=== PATIENT | male | born 1985 | race Caucasian/White ===

== ENCOUNTER 2019-04-20 19:30 | Emergency (ER) | payer MEDICAID ==
[~2019-04-20] VITALS: Ht 175.3 cm; Wt 90.3 kg
[2019-04-20 19:37] VITALS: BP_SYST 187
--- NOTE | 2019-04-20 19:45 | NUR ---
Placed in room 2. Placed on gambling monitor, blood pressure machine and pulse oximeter. To gown for exam. Side rails up.
--- NOTE | 2019-04-20 19:50 | NUR ---
Pt C/O of upper left abdominal pain and hypertension since earlier this evening. Pt reports poor appetite and increased abdominal after having 1/3 of a mixed drink. Pt denies any CP, SOB, headache, blurred vision, N/V, GI/ problems or any other symptoms at this time. Blood Pressure is currently 177/122, HR 61. Will continue to monitor.
--- NOTE | 2019-04-20 20:04 | NUR ---
# 20 gauge angiocath placed to LT AC. Use of asceptic technique. Opsite placed over site. Blood return noted. Blood for lab drawn from site. Flushed with 10 cc of normal saline. No evidence of infiltration noted. Patient tolerated well.
--- NOTE | 2019-04-20 20:06 | NUR ---
ER Dr. Swift at bedside examining patient.
[2019-04-20] MEDS ORDERED: ONDANSETRON HCL 4 MG/2 ML VIAL IVP ONE (20:30)
[2019-04-20] MEDS ORDERED: MORPHINE 4 MG/ML INJ. SYRINGE IVP ONE ×2 (20:30→21:30)
[2019-04-20 20:44] LABS: CALCIUM 8.2 mg/dL (8.4-11.0); CREATININE 0.95 mg/dL (0.55-1.30); POTASSIUM 3.7 mmol/L (3.5-5.1)
[2019-04-20 20:46] LABS: PROTHROMBIN TIME 9.9 SECS (9.5-12.5)
[2019-04-20 20:52] LABS: ALBUMIN 3.6 g/dL (3.4-4.8); BASOPHILS % (AUTO) 0.5 % (0.0-2.0); EOSINOPHILS # (AUTO) 0.2 K/uL (0.0-0.4); EOSINOPHILS % (AUTO) 3.2 % (0.0-4.0); HEMATOCRIT 40.5 % (36-54); HEMOGLOBIN 14.6 g/dL (14.0-18.0); LYMPHOCYTES # (AUTO) 1.4 K/uL (1.0-5.5); LYMPHOCYTES % (AUTO) 19.1 % (20.5-51.5); MEAN CORPUSCULAR HEMOGLOBIN 30 pg (27-31); MEAN CORPUSCULAR HGB CONC 36 % (32-36); MEAN CORPUSCULAR VOLUME 85 fL (79.0-98.0); MONOCYTES # (AUTO) 0.6 K/uL (0.0-1.0); MONOCYTES % (AUTO) 8.9 % (1.7-9.3); NEUTROPHILS # (AUTO) 4.9 K/uL (1.8-7.7); NEUTROPHILS % (AUTO) 68.3 % (40.0-70.0); PLATELET COUNT (AUTO) 165 K/uL (130-430); RED BLOOD CELL COUNT(AUTO) 4.79 MIL/uL (4.2-6.2); RED CELL DISTRIBUTION WIDTH 13.4 % (9.0-15.0); TOTAL BILIRUBIN 0.2 mg/dL (0.0-1.0); WHITE BLOOD COUNT (AUTO) 7.2 K/uL (4.8-10.8)
[2019-04-20 20:58] LABS: BILIRUBIN,URINE NEGATIVE (NEGATIVE); BLOOD, URINE 2+ (NEGATIVE); CLARITY/URINE CLEAR (CLEAR); COLOR,URINE YELLOW (YELLOW); GLUCOSE,URINE NEGATIVE (NEGATIVE); KETONES,URINE NEGATIVE (NEGATIVE); LEUKOCYTE ESTERASE ,URINE NEGATIVE (NEGATIVE); NITRITE, URINE NEGATIVE (NEGATIVE); PH,URINE 6.5 (5.0-8.0); PROTEIN URINE NEGATIVE (NEGATIVE); UROBILINOGEN,URINE 0.2 (0.2-1.0)
[2019-04-20 21:10] LABS: BACTERIA,URINE FEW /HPF (None Seen); MUCUS,URINE None Seen /LPF (None Seen); WBC,URINE 0-3 /HPF (0-3)
[2019-04-20] MEDS ORDERED: IOHEXOL 350 mgI/mL, 150 ML INFUS..BTL IV ONE (21:16)
--- NOTE | 2019-04-20 21:20 | NUR ---
Pt states pain is starting to return and radiating to the lower left quadrant. Dr. Swift has been notified, will continue to monitor.
--- NOTE | 2019-04-20 21:30 | NUR ---
Pt has been given Morphine IVP prior to CT-A per pt request. Tolerated medication well, will continue to monitor
--- NOTE | 2019-04-20 21:35 | NUR ---
Patient transported to radiology via gurney, accompanied by rad staff.
--- NOTE | 2019-04-20 21:47 | NUR ---
Patient returned in stable condition
--- NOTE | 2019-04-20 23:05 | NUR ---
Ultrasound at bedside.
[2019-04-21] MEDS ORDERED: hydrALAZINE HCL 20 MG/ML VIAL IVP ONE ×2 (00:45→02:45)
--- NOTE | 2019-04-21 00:45 | NUR ---
Pt states relief from second administration of Morphine IVP. Resting comfortably in bed, no acute distress noted at this time. Blood pressure is still elevated, will continue to monitor.
--- NOTE | 2019-04-21 01:21 | NUR ---
Pt is declining admission at this time and states he will follow up with his PMD regarding his abdominal pain and hypertension.
--- NOTE | 2019-04-21 02:50 | NUR ---
Pt is feeling nauseous after PO challenge. Dr. Swift has been notified.
[2019-04-21] MEDS ORDERED: ONDANSETRON HCL 4 MG/2 ML VIAL IVP ONE (03:00)
--- NOTE | 2019-04-21 03:13 | NUR ---
Patient given written and verbal discharge instructions and verbalizes understanding. ER MD Swift discussed with patient the results and treatment provided. Patient in stable condition. ID arm band removed. IV catheter removed intact and dressing applied, no active bleeding. Rx of Losartan, Parker, Zofran given. Patient educated on pain management and to follow up with PMD. Pain Scale 0. Opportunity for questions provided and answered. Medication side effect fact sheet provided.
[2019-04-21 03:17] VITALS: BP_SYST 153
== END 2019-04-21 03:17 | disposition home or self-care (01) ==
LOC: SED 19:30
CPT/HCPCS: 36415; 76700-TC; 80053; 81000-TC; 83690-TC; 84484; 85025; 85610-TC; 85730-TC; 93005; 96374; 96375; 96376; 99284; J0360; J2270; J2405; Q9967